=== PATIENT | female | born 1980 | race African-American/Black ===

== ENCOUNTER 2018-06-21 07:58 | Emergency (ER) | payer OTHER ==
[2018-06-21] MEDS ORDERED: Sodium Chloride 0.9% 10 ML Syringe FLUSH PRN (08:15)
[2018-06-21] MEDS ORDERED: Sodium Chloride 0.9% 2.5 ML Syringe FLUSH PRN (08:15)
[2018-06-21] MEDS ORDERED: Sodium Chloride 0.9% 1,000 ML IV ONE ×2 (08:16→10:32)
[2018-06-21] MEDS ORDERED: Ondansetron 4 MG/2 ML SDV IVPUSH ONE (08:16)
[2018-06-21] MEDS ORDERED: Pantoprazole 40 MG Vial IVPUSH ONE (08:16)
[2018-06-21] MEDS ORDERED: Morphine 2 MG/ML Syringe IVPUSH ONE ×2 (08:16→10:32)
[2018-06-21] MEDS ORDERED: Sodium Chloride 0.9% 20 ML ONE (08:23)
--- NOTE | 2018-06-21 08:26 | EDM.PDOC ---
ED HPI GENERAL MEDICAL PROBLEM - General Chief Complaint: General Stated Complaint: POST SURG PAIN Time Seen by Provider: 06/21/18 08:15 - History of Present Illness INITIAL COMMENTS - FREE TEXT/NARRATIVE: HISTORY AND PHYSICAL: History of present illness: The patient is a 38-year-old female who had surgery at [facility] last Thursday as the patient has had infertility issues and the tells me that she had a fibroid removed and presents with epigastric pain that started this morning. The patient speaks [place] and the would like to translate for her and he tells me she has had some lower abdominal pain since the surgery which she has been using the Percocet 5/325 that she was given for pain and that has been controlling it. He says that she woke up this morning and was having a normal morning when she started having sudden epigastric discomfort and nausea and vomiting as well as 2 episodes of stools. The stools in the vomit were not black or bloody and she persistently complains of this upper abdominal pain that does not localize right or left. She has not had any recent fevers chills chest pain or shortness of breath. He denies as she just had surgery last week and he is not completely clear as to the surgery and the procedure itself but says it was a fibroid. We are currently awaiting getting medical records from that procedure. The patient says she has been passing her urine and prior to these events has been eating and drinking normally. She did not take any pain pills today for this discomfort. She did not take anything [id number] for this pain. He says that the patient has been previously using the pain medication with relief and has not had this epigastric discomfort in the past. He says it came on suddenly this morning and she describes it as a burning-like sensation. The patient denies vaginal bleeding Review of systems: As per history of present illness and below otherwise all systems reviewed and negative. Past medical history: As per history of present illness and as reviewed below otherwise noncontributory. Surgical history: As per history of present illness and as reviewed below otherwise noncontributory. Social history: No reported history of drug or alcohol abuse. Family history: As per history of present illness and as reviewed below otherwise noncontributory. Physical exam: General: Well-developed well-nourished female who is nontoxic but looks very comfortable in the room and is moaning and moving [id number] and has had some dry heaves with some spit on my evaluation. Vital signs are noted by me. HEENT: Atraumatic, normocephalic, pupils reactive, negative for conjunctival pallor or scleral icterus, mucous membranes tacky, throat clear, neck supple, nontender, trachea midline. Lungs: Clear to auscultation, breath sounds equal bilaterally, chest nontender. No work of breathing or wheezing or stridor Heart: S1S2, regular, negative for clicks, rubs, or JVD. Abdomen: Soft, hypoactive bowel sounds but no tympany on percussion. The patient has epigastric tenderness on palpation but also has lower abdominal tenderness diffusely in the incision has a dressing in place. According to the they're not supposed to remove the dressing until Thursday but I did peel up the side of the dressing and the incision looks clean and dry without any erythema. The patient looks like she has an enlarged uterus and almost looks like she is 15-16 weeks and the uterus is palpable and there is exquisite tenderness with this exam. She pushes me away when I palpate the area touch of her lower abdomen and she has mild tenderness when I touch any other place at all but mostly in his lower region as well as in the epigastric area. When asked the if this abdominal visual exam is her baseline he says yes. Negative for masses or hepatosplenomegaly. Pelvis: Stable nontender. Genitourinary: Deferred. Rectal: Deferred. Extremities: Atraumatic, negative for cords or calf pain. Neurovascular unremarkable. Full range of motion without defects or deficits Neuro: Awake, alert, oriented. Cranial nerves II through XII unremarkable. Cerebellum unremarkable. Motor and sensory unremarkable throughout. Exam nonfocal. Diagnostics: CBC CMP lipase H. pylori UA serum hCG CT scan of the abdomen and pelvis Therapeutics: IV fluids Zofran and morphine Protonix Zosyn Medical records were obtained from [place] and the patient's surgeon was Dr Jacqueline Moeller and she went an open procedure for removal of a single uterine fibroid which was on the fundus of the uterus. In the notes that were obtained her preop examination indicated that the fibroid extended 4 cm above the umbilicus and on ultrasound the fibroid measured approximately 16 cm. According to the notes there were no complications and the patient was discharged on postop day 1. This corroborates the story of the telling me that her abdomen was much bigger before the surgery and although it still looks larger than normal it is much improved. 0905: She is feeling much improved and is in fact laying in the bed sleeping. T scan is coming to get the patient. I've already reviewed her labs and they're significant for a hemoglobin of 9.9 WBC count of 20.48 bilirubin of 2.0 with otherwise normal liver enzymes and a positive H. pylori The tele-radiologist contacted me with concerning findings for uterine dehiscence and/or surrounding infection from this patient's surgery. I have reviewed the formal report and have contacted the on-call doctor for Dr. Moeller, Dr. Caraballo at 10:33 AM. She is aware of all lab tests as well as the CAT scan findings and accepts the patient for transfer. She is aware that I gave a dose of Zosyn as well as IV fluids and she is stable currently although slightly tachycardic and complaining of pain again. The patient has not had any vaginal bleeding while here in the emergency department. We will transfer this patient by ambulance. On my reevaluation of her abdominal exam she is not having any more abdominal distention and her abdomen is soft and in fact she has less tenderness with palpation of the lower abdominal areas. The and patient are also aware of the H. pylori test which is likely an incidental finding. We will send all images to the receiving hospital and I will give a second liter of IV fluids more pain medication and the Zosyn for transfer. She understands as does the the need for transfer and they are agreeable Impression: Lower abdominal pain with recent myomectomy, postoperative infection, rule out endometritis rule out uterine dehiscence Epigastric abdominal pain with H. pylori positive, likely an incidental finding Definitive disposition and diagnosis as appropriate pending reevaluation and review of above. 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: 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 Musculoskeletal History: Reports: None Neurological History: Reports: None Psychiatric History: Reports: None Endocrine/Metabolic History: Reports: None Hematologic History: Reports: None Immunologic History: Reports: None Oncologic (Cancer) History: Reports: None Dermatologic History: Reports: None - Past Surgical History Head Surgeries/Procedures: Reports: None HEENT Surgical History: Reports: None Cardiovascular Surgical History: Reports: None Respiratory Surgical History: Reports: None GI Surgical History: Reports: None Female Surgical History: Reports: Endometrial Ablation Endocrine Surgical History: Reports: None Neurological Surgical History: Reports: None Musculoskeletal Surgical History: Reports: None Oncologic Surgical History: Reports: None Dermatological Surgical History: Reports: None Social & Family History - Family History Family Medical History: Noncontributory - Tobacco Use Smoking Status *Q: Never Smoker Second Hand Smoke Exposure: No - Caffeine Use Caffeine Use: Reports: Tea - Recreational Drug Use Recreational Drug Use: No ED ROS GENERAL - Review of Systems Review Of Systems: ROS reveals no pertinent complaints other than HPI. ED EXAM, GENERAL - Physical Exam Exam: See Below (See dictation) Course - Vital Signs Last Recorded V/S: Last Vital Signs Temp 35.9 C 06/21/18 09:54 Pulse 106 H 06/21/18 10:32 Resp 16 06/21/18 10:32 BP 109/74 06/21/18 10:32 Pulse Ox 100 06/21/18 10:32 - Orders/Labs/Meds Orders: Active Orders 24 hr Category Date Time Status UA RFX SCARLETT AND CULT IF INDIC [URIN] Stat Lab 06/21/18 08:15 Ordered Sodium Chloride 0.9% [Normal Saline] 1,000 ml Med 06/21/18 10:32 Active IV STAT Sodium Chloride 0.9% [Saline Flush] Med 06/21/18 08:15 Active 10 ml FLUSH ASDIRECTED PRN Sodium Chloride 0.9% [Saline Flush] Med 06/21/18 08:15 Active 2.5 ml FLUSH ASDIRECTED PRN Saline Lock Insert [OM.PC] Stat Oth 06/21/18 08:15 Ordered Medication Orders Sodium Chloride (Normal Saline) 1,000 mls @ 999 mls/hr IV STAT ONE Stop: 06/21/18 11:32 Sodium Chloride (Saline Flush) 10 ml FLUSH ASDIRECTED PRN PRN Reason: Keep Vein Open Last Admin: 06/21/18 08:39 Dose: 10 ml Sodium Chloride (Saline Flush) 2.5 ml FLUSH ASDIRECTED PRN PRN Reason: Keep Vein Open Last Admin: 06/21/18 08:39 Dose: 2.5 ml Labs: Laboratory Tests 06/21/18 06/21/18 06/21/18 Range/Units 08:25 08:25 08:25 WBC 20.48 H (4.0-11.0) K/uL RBC 3.66 L (4.30-5.90) M/uL Hgb 9.9 L (12.0-16.0) g/dL Hct 29.7 L (36.0-46.0) % MCV 81.1 (80.0-98.0) fL MCH 27.0 (27.0-32.0) pg MCHC 33.3 (31.0-37.0) g/dL RDW Std Deviation 40.3 (28.0-62.0) fl RDW Coeff of Ben 14 (11.0-15.0) % Plt Count 515 H (150-400) K/uL MPV 9.50 (7.40-12.00) fL Neut % (Auto) 86.9 H (48.0-80.0) % Lymph % (Auto) 5.0 L (16.0-40.0) % [place] % (Auto) 8.0 (0.0-15.0) % Eos % (Auto) 0.0 (0.0-7.0) % Baso % (Auto) 0.1 (0.0-1.5) % Neut # (Auto) 17.8 H (1.4-5.7) K/uL Lymph # (Auto) 1.0 (0.6-2.4) K/uL [place] # (Auto) 1.6 H (0.0-0.8) K/uL Eos # (Auto) 0.0 (0.0-0.7) K/uL Baso # (Auto) 0.0 (0.0-0.1) K/uL Nucleated RBC % 0.2 /100WBC Nucleated RBCs # 0 K/uL Sodium 135 L (136-145) mmol/L Potassium 4.0 (3.5-5.1) mmol/L Chloride 97 L (98-107) mmol/L Carbon Dioxide 24.9 (21.0-32.0) mmol/L BUN 11 (7.0-18.0) mg/dL Creatinine 1.0 (0.6-1.0) mg/dL Est Cr Clr Drug Dosing 67.16 mL/min Estimated GFR (MDRD) > 60.0 ml/min Glucose 136 H (74-106) mg/dL Calcium 9.6 (8.5-10.1) mg/dL Total Bilirubin 2.0 H (0.2-1.0) mg/dL AST 27 (15-37) IU/L ALT 27 (14-63) IU/L Alkaline Phosphatase 103 (46-116) U/L Total Protein 8.6 H (6.4-8.2) g/dL Albumin 3.0 L (3.4-5.0) g/dL Globulin 5.6 H (2.6-4.0) g/dL Albumin/Globulin Ratio 0.5 L (0.9-1.6) Lipase 77 (73-393) U/L HCG, Qual NEGATIVE (NEG) H. pylori IgG Antibody POSITIVE H (NEG) Meds: Medications Generic Name Dose Route Start Last Admin Trade Name Freq PRN Reason Stop Dose Admin Sodium Chloride 1,000 mls @ 999 mls/hr 06/21/18 10:32 Normal Saline IV 06/21/18 11:32 STAT ONE Sodium Chloride 10 ml 06/21/18 08:15 06/21/18 08:39 Saline Flush FLUSH 10 ml ASDIRECTED PRN Administration Keep Vein Open Sodium Chloride 2.5 ml 06/21/18 08:15 06/21/18 08:39 Saline Flush FLUSH 2.5 ml ASDIRECTED PRN Administration Keep Vein Open Discontinued Medications Generic Name Dose Route Start Last Admin Trade Name Freq PRN Reason Stop Dose Admin Sodium Chloride 1,000 mls @ 999 mls/hr 06/21/18 08:16 06/21/18 08:33 Normal Saline IV 06/21/18 09:16 999 mls/hr STAT ONE Administration Sodium Chloride Confirm 06/21/18 08:23 06/21/18 08:39 Normal Saline Administered 06/21/18 08:24 20 mls/hr Dose Administration 20 mls @ as directed .ROUTE .STK-MED ONE Piperacillin Sod/Tazobactam 50 mls @ 100 mls/hr 06/21/18 10:10 Sod 3.375 gm/ Sodium Chloride IV 06/21/18 10:39 ONETIME ONE Iopamidol 100 ml 06/21/18 09:46 06/21/18 09:46 Isovue Multipack-370 (76%) IVPUSH 06/21/18 09:47 100 ml ONETIME ONE Administration Morphine Sulfate 4 mg 06/21/18 08:16 06/21/18 08:35 Morphine IVPUSH 06/21/18 08:17 4 mg ONETIME ONE Administration Morphine Sulfate 4 mg 06/21/18 10:32 Morphine IVPUSH 06/21/18 10:33 ONETIME ONE Ondansetron HCl 4 mg 06/21/18 08:16 06/21/18 08:33 Zofran IVPUSH 06/21/18 08:17 4 mg ONETIME ONE Administration Pantoprazole Sodium 80 mg 06/21/18 08:16 06/21/18 08:34 Protonix Iv IVPUSH 06/21/18 08:17 80 mg .BOLUS ONE Administration Departure - Departure Time of Disposition: 10:45 Disposition: DC/Tfer to Acute Hospital 02 Condition: Good Clinical Impression: Positive Helicobacter pylori test Postoperative infection Qualifiers: Encounter type: initial encounter Postoperative infection type: organ or organ space surgical site Qualified Code(s): T81.43XA - Infection following a procedure, organ and space surgical site, initial encounter - Discharge Information Referrals: PCP,Unknown [Primary Care Provider] - Forms: ED Department Discharge - My Orders Last 24 Hours: My Active Orders 06/21/18 08:15 UA RFX SCARLETT AND CULT IF INDIC [URIN] Stat Sodium Chloride 0.9% [Saline Flush] 10 ml FLUSH ASDIRECTED PRN Sodium Chloride 0.9% [Saline Flush] 2.5 ml FLUSH ASDIRECTED PRN Saline Lock Insert [OM.PC] Stat 06/21/18 10:32 Sodium Chloride 0.9% [Normal Saline] 1,000 ml IV STAT - Assessment/Plan Last 24 Hours: My Active Orders 06/21/18 08:15 UA RFX SCARLETT AND CULT IF INDIC [URIN] Stat Sodium Chloride 0.9% [Saline Flush] 10 ml FLUSH ASDIRECTED PRN Sodium Chloride 0.9% [Saline Flush] 2.5 ml FLUSH ASDIRECTED PRN Saline Lock Insert [OM.PC] Stat 06/21/18 10:32 Sodium Chloride 0.9% [Normal Saline] 1,000 ml IV STAT
[2018-06-21 08:58] LABS: CHLORIDE,CL 97 mmol/L (98-107); SODIUM,NA 135 mmol/L (136-145)
[2018-06-21] MEDS ORDERED: Iopamidol 755 MG/ML 500 ML Multipack Bottle IVPUSH ONE (09:46)
[2018-06-21] MEDS ORDERED: Piperacillin/Tazobactam 3.375 GM in Sodium Chloride 0.9% 50 ML IV ONE (10:10)
--- NOTE | 2018-06-21 10:24 | CT ---
Indication: Pain in lower abdomen Technique: Contrast-enhanced CT abdomen and pelvis. 100 mL Isovue 370. Coronal and sagittal reformatted images obtained. Comparison: No comparison studies are available. Findings: Heart size is normal. There is no pericardial effusion or pleural effusion. Liver spleen pancreas gallbladder and adrenal glands are unremarkable. Symmetric enhancement of both kidneys. There is no hydronephrosis. The uterus is enlarged and heterogeneous in appearance. Complex low-attenuation collections within the uterus measuring up to 10.4 by 6.3 x 6 cm There are there are 2 linear low-attenuation incision/uterine discontinuity along the anterior superior and mid uterus extending anteriorly with adjacent anterior ill-defined mixed attenuation collections along the anterior pelvis. This is seen on sagittal series 204, image 70 and also image 78. There is significant heterogeneous slightly dense inflammatory change and fluid extending along the anterior pelvis and also along the lateral pelvic gutters. The urinary bladder appears grossly intact. There is a minimal stranding in the prevesical space. The majority is anterior to the uterus. The bowel appears unremarkable. No obstruction. No suspicious bony lesions. Impression: 1. Heterogeneous enlarged uterus. Complex low-attenuation collections in the uterus measuring up to 10.4 x 6.3 x 6 cm. There are 2 linear areas of uterine discontinuity/incisions seen along the mid and lower anterior uterus which is contiguous with significant heterogeneous slightly dense inflammatory change and fluid along the anterior pelvis. Findings are worrisome for uterine dehiscence with hemorrhage and infection. Results called to Dr. Huang on 06/21/2018 at 10:20am. Please note that all CT scans at this facility use dose modulation, iterative reconstruction, and/or weight-based dosing when appropriate to reduce radiation dose to as low as reasonably achievable. Dictated by Toshia Andrea MD @ Jun 21 2018 9:57AM Signed by Dr. Toshia Andrea @ Jun 21 2018 10:22AM
[2018-06-21] MEDS ORDERED: Sodium Chloride 0.9% 1,000 ML IV SCH (11:00)
== END 2018-06-21 12:08 ==
LOC: MW.ED 07:58
DX: T81.43XA Infection following a procedure, organ and space surgical site, initial encounter (principal); B96.81 Helicobacter pylori [H. pylori] as the cause of diseases classified elsewhere
CPT/HCPCS: 36415; 74177; 80053; 81001; 83690; 84703; 85025; 86677; 96361; 96365; 96375; 96376; 99285; C9113; J2270; J2405; J2543; J7040; J7050; Q9967

== ENCOUNTER 2019-11-07 05:21 | Inpatient (IN) | payer BC ==
[2019-11-07] MEDS ORDERED: ceFAZolin 1 GM in Premix Bag 1 BAG IV ONE (05:29)
[2019-11-07] MEDS ORDERED: Citric Acid/Sodium Citrate Solution 30 ML Cup PO ONE (05:29)
[2019-11-07] MEDS ORDERED: Sodium Chloride 0.9% 10 ML Syringe FLUSH PRN (05:29)
[2019-11-07] MEDS ORDERED: Sodium Chloride 0.9% 10 ML SDV IV PRN (05:29)
[2019-11-07] MEDS ORDERED: Sodium Chloride 0.9% 2.5 ML Syringe FLUSH PRN (05:29)
[2019-11-07] MEDS ORDERED: Oxytocin/0.9 % Sodium Chloride 30 UNIT/500 ML BAG IV SCH (05:30)
[2019-11-07] MEDS: Lactated Ringers 1,000 ML IV SCH ×4 (06:06→17:14)
--- NOTE | 2019-11-07 07:04 | PCM.PREANE ---
Preanesthetic Assessment - Anesthesia/Transfusion/Family Hx Anesthesia History: Prior Anesthesia Without Reaction Family History of Anesthesia Reaction: No Transfusion History: Prior Transfusion Without Reaction Intubation History: Unknown - Review of Systems General: No Symptoms Pulmonary: No Symptoms Cardiovascular: No Symptoms Gastrointestinal: No Symptoms Neurological: No Symptoms Other: Reports: None - Physical Assessment Height: 5 ft 4 in Weight: 72.575 kg ASA Class: 2 Mental Status: Alert & Oriented x3 Airway Class: Mallampati = 2 Dentition: Reports: Normal Dentition Thyro-Mental Finger Breadths: 3 Mouth Opening Finger Breadths: 2 (small mouth) ROM/Head Extension: Full Lungs: Clear to Auscultation, Normal Respiratory Effort Cardiovascular: Regular Rate, Regular Rhythm - Lab Values: Laboratory Last Values WBC 7.99 K/uL (4.0-11.0) 11/04/19 08:33 RBC 4.25 M/uL (4.30-5.90) L 11/04/19 08:33 Hgb 10.7 g/dL (12.0-16.0) L 11/04/19 08:33 Hct 34.6 % (36.0-46.0) L 11/04/19 08:33 MCV 81.4 fL (80.0-98.0) 11/04/19 08:33 MCH 25.2 pg (27.0-32.0) L 11/04/19 08:33 MCHC 30.9 g/dL (31.0-37.0) L 11/04/19 08:33 RDW Std Deviation 61.8 fl (28.0-62.0) 11/04/19 08:33 RDW Coeff of Ben 22 % (11.0-15.0) H 11/04/19 08:33 Plt Count 222 K/uL (150-400) 11/04/19 08:33 MPV 10.60 fL (7.40-12.00) 11/04/19 08:33 Nucleated RBC % 0.0 /100WBC 11/04/19 08:33 Nucleated RBCs # 0 K/uL 11/04/19 08:33 Blood Type O POSITIVE 11/04/19 08:33 Antibody Screen NEGATIVE 11/04/19 08:33 - Allergies Allergies/Adverse Reactions: Allergies Allergy/AdvReac Type Severity Reaction Status Date / Time No Known Allergies Allergy Verified 11/03/19 10:15 - Blood Blood Available: No - Anesthesia Plan Pre-Op Medication Ordered: None - Acknowledgements Anesthesia Type Planned: Spinal (GETA back-up plan) Pt an Appropriate Candidate for the Planned Anesthesia: Yes Alternatives and Risks of Anesthesia Discussed w Pt/Guardian: Yes Pt/Guardian Understands and Agrees with Anesthesia Plan: Yes PreAnesthesia Questionnaire HEENT History: Reports: Other (See Below) Other HEENT History: wears glasses Cardiovascular History: Reports: None Respiratory History: Reports: None Gastrointestinal History: Reports: Helicobacter Pylori Genitourinary History: Reports: None FIELD TECH History: Reports: Fibroids, Other OB/BYN History: possible missed AB Musculoskeletal History: Reports: None Neurological History: Reports: None Psychiatric History: Reports: None Endocrine/Metabolic History: Reports: None Hematologic History: Reports: Blood Transfusion(s) Other Hematologic History: transfused after missed AB ? Immunologic History: Reports: None Oncologic (Cancer) History: Reports: None Dermatologic History: Reports: None - Past Surgical History Head Surgeries/Procedures: Reports: None Female Surgical History: Reports: Other (See Below) Other Female Surgeries/Procedures: removal of uterine fibroid - SUBSTANCE USE Smoking Status *Q: Never Smoker Second Hand Smoke Exposure: No Recreational Drug Use History: No - HOME MEDS Home Medications: Home Meds Pnv No.95/Ferrous Fum/Folic AC [ Vitamin Tablet] 1 tab PO DAILY 11/03/19 [History] - CURRENT (IN HOUSE) MEDS Current Meds: Current Medications Oxytocin/Sodium Chloride (Oxytocin 30 Unit/500 Ml-Ns) 30 unit in 500 mls @ 250 mls/hr IV TITRATE SHAJI Lactated Ringer's (Ringers, Lactated) 1,000 mls @ 500 mls/hr IV BOLUS SHAJI Last Admin: 11/07/19 06:06 Dose: 500 mls/hr Documented by: Sodium Chloride (Saline Flush) 10 ml FLUSH ASDIRECTED PRN PRN Reason: Keep Vein Open Sodium Chloride (Saline Flush) 2.5 ml FLUSH ASDIRECTED PRN PRN Reason: Keep Vein Open Sodium Chloride (Normal Saline) 10 ml IV ASDIRECTED PRN PRN Reason: IV Use Discontinued Medications Citric Acid/Sodium Citrate (Bicitra Solution) 30 ml PO ONETIME ONE Stop: 07/20/20 05:30 Cefazolin Sodium/Dextrose 1 gm (/ Premix) 50 mls @ 100 mls/hr IV ONETIME ONE Stop: 11/07/19 05:58
[2019-11-07] MEDS ORDERED: Oxytocin 10 Units/1 ML SDV ONE (07:32)
[2019-11-07] MEDS ORDERED: Morphine PF 10 MG/10 ML SDV ONE (07:33)
[2019-11-07] MEDS ORDERED: ceFAZolin 1 GM Vial ONE (07:40)
[2019-11-07] MEDS ORDERED: fentaNYL 100 MCG/2 ML SDV ONE (09:21)
[2019-11-07] MEDS ORDERED: Ondansetron 4 MG/2 ML SDV IVPUSH PRN ×2 (09:28→09:39)
[2019-11-07] MEDS ORDERED: diphenhydrAMINE 50 MG/ML SDV IVPUSH PRN ×2 (09:28→09:39)
[2019-11-07] MEDS ORDERED: Misoprostol 200 MCG Tab RECTAL PRN (09:28)
[2019-11-07] MEDS ORDERED: Methylergonovine 0.2 MG/1 ML Amp IM PRN (09:28)
[2019-11-07] MEDS ORDERED: Oxytocin 10 Units/1 ML SDV IM PRN (09:28)
[2019-11-07] MEDS ORDERED: Tranexamic Acid 1,000 MG in Sodium Chloride 0.9% 100 ML IV PRN (09:28)
[2019-11-07] MEDS ORDERED: Bisacodyl 10 MG Supp RECTAL PRN (09:28)
[2019-11-07] MEDS ORDERED: Lanolin 100% Cream 7 GM Tube TOP PRN (09:28)
[2019-11-07] MEDS ORDERED: Acetaminophen/oxyCODONE 325-5 MG Tab PO PRN ×2 (09:28→09:39)
[2019-11-07] MEDS ORDERED: Naloxone 0.4 MG/ML Syringe IVPUSH PRN (09:39)
[2019-11-07] MEDS ORDERED: fentaNYL 100 MCG/2 ML SDV IVPUSH PRN (09:39)
[2019-11-07] MEDS ORDERED: Nalbuphine 10 MG/1 ML Vial IVPUSH PRN (09:39)
--- NOTE | 2019-11-07 10:03 | PCM.OPNOTE ---
- General Post-Op/Procedure Note Date of Surgery/Procedure: 11/07/19 Operative Procedure(s): Primary LTCS Findings: Viable male 8, 9 weight 7 lb 2 oz. Delivery intact placenta with 3V cord. Significant lower uterine segment adhesions to anterior abdominal wall given previous laparotomy Pre Op Diagnosis: 37 week IUP. Previous laparotomy with myomectomy Post-Op Diagnosis: Same Anesthesia Technique: Spinal Primary Surgeon: Eileen Hamilton [facility] Laboratory Technician: Agustina Proctor Pathology: placenta Fluid Replacement, Intraop: 2,100 EBL in mLs: 800 Complications: none known Condition: Stable Free Text/Narrative:: Dictation [id number]
[2019-11-07] MEDS: Ketorolac 30 MG/ML SDV IVPUSH SCH ×3 (10:07→21:11)
--- NOTE | 2019-11-07 14:49 | OR ---
SURGEON: Eileen Hamilton M.D. DATE OF PROCEDURE: 11/07/2019 PREOPERATIVE DIAGNOSES: 1. A 37-week intrauterine . 2. Previous laparotomy with myomectomy. POSTOPERATIVE DIAGNOSES: 1. A 37-week intrauterine . 2. Previous laparotomy with myomectomy. PROCEDURE: Primary low transverse section. PRIMARY SURGEON: Eileen Hamilton MD ANESTHESIA: Spinal. ESTIMATED BLOOD LOSS: 800 mL. FLUIDS: 2100 mL of crystalloid. FINDINGS: Viable male. score of 8 at one minute and 9 at five minutes. Weight of 7 pounds 2 ounces. Delivery; intact placenta, 3-vessel cord. Significant anterior abdominal wall lower uterine segment adhesions. The lower uterine segment is not developed at all given previous myomectomy with significant scarring along this region of the uterus. DISPOSITION: The patient to PACU, to nursery in stable condition. PROCEDURE DETAILS: Clarice is a 39-year-old, G1, P0, at 37 weeks' gestational age who presents this morning for scheduled primary delivery given history of laparotomy with myomectomy. Risks of procedure were discussed. Proper consent obtained. Given the depth and the location of the myomectomy, I felt it was best to proceed with delivery, not allow her to labor. The patient was taken to the operating room where she underwent spinal anesthetic, was placed in dorsal supine position with leftward tilt. SCDs to lower extremity. Yeung to gravity. Was prepped and draped in usual sterile fashion. Received Ancef prophylactically. Time-out was performed. Anesthesia was tested, found to be adequate. Previous Pfannenstiel scar was now excised. Subcutaneous tissue was incised, carried down to level of the rectus fascia, was incised in the midline, lateralized on either side sharply and bluntly. There was significant amount of scar tissue already noted. Anterior upper fascia was grasped with Sheila clamps, dissected away from underlying muscles. In a similar aspect, this was performed with the inferior aspect of fascia. Rectus muscle was now in the midline. The peritoneum was not entered easily. It was fairly scarred. Was able to enter along the mid uterine region. Careful dissection and adhesiolysis allowed further entry into the abdominal cavity. The fundal portion of the uterus was smooth. There was, however, beginning in the mid uterus down to the lower uterine segment significant scarring and adhesions present. Careful adhesiolysis was performed. At this juncture, the uterus was quite boggy. The planes were not well developed. The bladder was able to be gently mobilized away from the region of the lower uterine segment. The lower uterine segment was boggy, not well defined. Therefore, I called my partner, Dr. Proctor, in to assist with the procedure and notified Anesthesia who prepared for potential for hemorrhage At this juncture, a transverse hysterotomy was created.The tissue was quite dense in this region and it felt to be more of a mid uterine entry. The lower uterine segment was not well developed. Amniotomy was performed, clear fluid was returned. The hysterotomy was now lateralized bluntly. Infant's head was flexed and delivered to the midline. Fundal pressure was applied. The head was delivered followed by anterior shoulder, posterior shoulder, and the remainder of the body without difficulty. There was nuchal cord x1, reduced manually. 's oropharynx and nares were bulb suctioned. The cord was clamped x2 and cut. Infant was handed off to attending nursery staff. Cord arterial, cord venous, cord blood sampling obtained. The placenta was now delivered. Hysterotomy was repaired using 0 Vicryl. The deeper layers of this fairly thick hysterotomy were replicated with 0 Vicryl sutures followed by a secondary re-imbricating layer. Any areas along the serosa, oozing were now cauterized. There was some bleeding along the right lateral aspect of the hysterotomy, was repaired with two [id number] sutures. Hemostasis thereafter evident. Pelvis was now copiously irrigated, suction dried. Was able to visualize ovaries, appeared normal. The bladder integrity was now checked given the obscurity of the planes. The bladder was backfilled with 120 mL of sterile formula and found to be intact. No region of perforation was noted. The bladder was once again drained. Pelvis once again copiously irrigated. Any areas of oozing were further cauterized and then Gregory was placed along the hysterotomy and along the raw anterior uterine mid to low uterine segment followed by placement of Interceed to help hopefully prevent further adhesion formation. The rectus muscles and what could be palpated for peritoneum were now reapproximated in an inverted mattress suture technique. Anterior aspect of the muscle closely inspected, any areas of oozing were cauterized. Posterior aspect of the fascia was inspected, any areas of oozing were cauterized. Fascial edges were reapproximated using 0 Vicryl in continuous running fashion, beginning laterally on either side and meeting in the midline. Subcutaneous tissue was well irrigated, suction dried. Any areas of oozing were cauterized. Skin edges were reapproximated using 3-0 Vicryl on a Shivam needle in subcuticular fashion followed by half-inch Steri-Strips and Mastisol. The uterus was firm. Hemostasis appeared evident. Overall, the patient tolerated the procedure well. She will go to PACU in stable condition, infant to nursery. Sponge, instrument, and needle counts correct x2. MELANIE / TOSHIA /[id number]
[2019-11-07] MEDS: Docusate Sodium 100 MG Cap PO SCH (21:11)
[2019-11-08] MEDS: Ketorolac 30 MG/ML SDV IVPUSH SCH ×2 (03:06→10:15)
--- NOTE | 2019-11-08 07:35 | PCM.PNPP ---
<Florentino Kaminski - Last Filed: 11/08/19 07:35> - General Info Date of Service: 11/08/19 Subjective Update: Pt doing well today. Has mild pain, worse when she moves. She has been ambulating back and forth to the restroom, feeling so dizziness with standing. She has voided urine. has been difficult thus far. Bleeding is minimal. Functional Status: Reports: Pain Controlled - Review of Systems General: Reports: No Symptoms HEENT: Reports: No Symptoms Pulmonary: Reports: No Symptoms Cardiovascular: Reports: No Symptoms Gastrointestinal: Reports: Abdominal Pain Genitourinary: Reports: No Symptoms Musculoskeletal: Reports: No Symptoms Skin: Reports: No Symptoms Neurological: Reports: Dizziness Psychiatric: Reports: No Symptoms - General Info Date of Service: 11/08/19 - Patient Data Vital Signs - Most Recent: Last Vital Signs Temp 97.2 F 11/08/19 04:00 Pulse 102 H 11/08/19 06:00 Resp 17 11/08/19 06:00 BP 99/58 L 11/08/19 04:00 Pulse Ox 92 L 11/08/19 06:00 Weight - Most Recent: 72.575 kg I&O - Last 24 Hours: Intake & Output 11/07/19 11/08/19 11/08/19 22:59 06:59 14:59 Intake Total 1098 Output Total 250 1125 Balance -250 -27 Lab Results - Last 24 Hours: Laboratory Results - last 24 hr 11/04/19 11/07/19 11/08/19 Range/Units 08:33 08:49 05:55 Hgb 8.3 L (12.0-16.0) g/dL Hct 26.3 L (36.0-46.0) % Cord ABG pH 7.264 (7.18-7.38) Cord ABG Base Excess -4 (-10--2) Cord VBG pH 7.268 (7.25-7.45) Cord VBG Base Excess -5 (-10--2) Blood Type O POSITIVE Antibody Screen NEGATIVE Crossmatch See Detail Med Orders - Current: Current Medications Bisacodyl (Dulcolax) 10 mg RECTAL ONETIME PRN PRN Reason: Constipation Diphenhydramine HCl (Benadryl) 25 mg IVPUSH Q6H PRN PRN Reason: Itching or Nausea Diphenhydramine HCl (Benadryl) 25 mg IVPUSH Q4H PRN PRN Reason: Itching Stop: 11/08/19 09:39 Docusate Sodium (Colace) 100 mg PO BID [facility] Last Admin: 11/07/19 21:11 Dose: 100 mg Documented by: Emollient Ointment (Lansinoh Hpa) 0 gm TOP ASDIRECTED PRN PRN Reason: Sore Nipples Fentanyl (Sublimaze) 50 mcg IVPUSH Q1H PRN PRN Reason: Pain (severe 7-10) Oxytocin/Sodium Chloride (Oxytocin 30 Unit/500 Ml-Ns) 30 unit in 500 mls @ 250 mls/hr IV TITRATE [facility] Lactated Ringer's (Ringers, Lactated) 1,000 mls @ 500 mls/hr IV BOLUS [facility] Last Admin: 11/07/19 07:04 Dose: 500 mls/hr Documented by: Lactated Ringer's (Ringers, Lactated) 1,000 mls @ 125 mls/hr IV ASDIRECTED [facility] Last Admin: 11/07/19 17:14 Dose: 125 mls/hr Documented by: Tranexamic Acid 1,000 mg/ (Sodium Chloride) 110 mls @ 660 mls/hr IV ONETIME PRN PRN Reason: Bleeding Ibuprofen (Motrin) 800 mg PO Q8H PRN PRN Reason: mild pain or fever Ketorolac Tromethamine (Toradol) 30 mg IVPUSH Q6H [facility] Stop: 11/08/19 09:31 Last Admin: 11/08/19 03:06 Dose: 30 mg Documented by: Methylergonovine Maleate (Methergine) 0.2 mg IM ONETIME PRN PRN Reason: Excessive Vaginal Bleeding Misoprostol (Cytotec) 1,000 mcg RECTAL ONETIME PRN PRN Reason: excessive bleeding Nalbuphine HCl (Nubain) 5 mg IVPUSH ASDIRECTED PRN PRN Reason: Itching Naloxone HCl (Narcan) 0.1 mg IVPUSH ONETIME PRN PRN Reason: Respiratory Depression Stop: 11/08/19 09:39 Ondansetron HCl (Zofran) 4 mg IVPUSH Q4H PRN PRN Reason: Nausea/Vomiting Ondansetron HCl (Zofran) 4 mg IVPUSH Q6H PRN PRN Reason: Nausea Oxycodone/Acetaminophen (Percocet 325-5 Mg) 1 tab PO Q4H PRN PRN Reason: Pain (moderate 4-6) Oxycodone/Acetaminophen (Percocet 325-5 Mg) 2 tab PO Q4H PRN PRN Reason: Pain (moderate 4-6) Oxytocin (Pitocin) 10 unit IM ASDIRECTED PRN PRN Reason: Excessive Vaginal Bleeding Sodium Chloride (Saline Flush) 10 ml FLUSH ASDIRECTED PRN PRN Reason: Keep Vein Open Sodium Chloride (Saline Flush) 2.5 ml FLUSH ASDIRECTED PRN PRN Reason: Keep Vein Open Sodium Chloride (Normal Saline) 10 ml IV ASDIRECTED PRN PRN Reason: IV Use Discontinued Medications Cefazolin Sodium (Ancef) Confirm Administered Dose 1 gm .ROUTE .STK-MED ONE Stop: 11/07/19 07:41 Citric Acid/Sodium Citrate (Bicitra Solution) 30 ml PO ONETIME ONE Stop: 11/07/19 05:30 Last Admin: 11/07/19 10:29 Dose: Not Given Documented by: Fentanyl (Sublimaze) Confirm Administered Dose 100 mcg .ROUTE .STK-MED ONE Stop: 11/07/19 09:22 Cefazolin Sodium/Dextrose 1 gm (/ Premix) 50 mls @ 100 mls/hr IV ONETIME ONE Stop: 11/07/19 05:58 Last Admin: 11/07/19 10:29 Dose: Not Given Documented by: Morphine Sulfate (Duramorph Pf) Confirm Administered Dose 10 mg .ROUTE .STK-MED ONE Stop: 11/07/19 07:34 Oxycodone/Acetaminophen (Percocet 325-5 Mg) 2 tab PO Q6H PRN PRN Reason: Pain (moderate 4-6) Oxytocin (Pitocin) Confirm Administered Dose 30 unit .ROUTE .STK-MED ONE Stop: 11/07/19 07:33 Tranexamic Acid (Cyklokapron) Confirm Administered Dose 1,000 mg .ROUTE .STK-MED ONE Stop: 11/07/19 08:34 - Infant Interaction Support Person: - Recovery Exam Fundal Tone: Firm Fundal Level: 2 Fingerbreadths Above Umbilicus Fundal Placement: Midline Lochia Amount: Scant Lochia Color: Rubra/Red Perineum Description: Intact, Minimal Bruising/Swelling Episiotomy/Laceration: None Bladder Status: Indwelling Catheter in Place Urinary Elimination: Indwelling Catheter - Exam General: Alert, Oriented, No Acute Distress HEENT: Pupils Equal, EOMI Neck: Supple, No JVD Lungs: Clear to Auscultation, Normal Respiratory Effort. No: Crackles, Rales, Rhonchi, Wheezing Cardiovascular: Regular Rate, Regular Rhythm, Murmurs (systolic murmur) GI/Abdominal Exam: Normal Bowel Sounds, Soft, Tender. No: Guarding, Rigid Extremities: Normal Inspection, Non-Tender, Pedal Edema Skin: Warm, Dry, Intact Wound/Incisions: Healing Well Neurological: No New Focal Deficit, Normal Speech, Normal Tone Psy/Mental Status: Alert, Normal Affect, Normal Mood - Problem List & Annotations (1) Status post SNOMED Code(s): 934541982, 256486637 Code(s): Z98.891 - HISTORY OF UTERINE SCAR FROM PREVIOUS SURGERY Status: Acute Current Visit: Yes - Problem List Review Problem List Initiated/Reviewed/Updated: Yes - Assessment Assessment:: 39yo s/p LTCD at 37wks for hx of myomectomy. POD#1 - Plan Plan:: Routine care Encourage ambulation Encourage Possible discharge POD#2 <Eileen Hamilton - Last Filed: 11/08/19 10:08> - General Info Subjective Update: Clarify--no dizziness with standing - Patient Data Vital Signs - Most Recent: Last Vital Signs Temp 36.7 C 11/08/19 07:30 Pulse 106 H 11/08/19 07:30 Resp 16 11/08/19 08:20 BP 106/58 L 11/08/19 07:30 Pulse Ox 95 11/08/19 08:20 I&O - Last 24 Hours: Intake & Output 11/07/19 11/08/19 11/08/19 22:59 06:59 14:59 Intake Total 1098 Output Total 250 1125 Balance -250 -27 Lab Results - Last 24 Hours: Laboratory Results - last 24 hr 11/04/19 11/08/19 Range/Units 08:33 05:55 Hgb 8.3 L (12.0-16.0) g/dL Hct 26.3 L (36.0-46.0) % Crossmatch See Detail Med Orders - Current: Current Medications Bisacodyl (Dulcolax) 10 mg RECTAL ONETIME PRN PRN Reason: Constipation Diphenhydramine HCl (Benadryl) 25 mg IVPUSH Q6H PRN PRN Reason: Itching or Nausea Docusate Sodium (Colace) 100 mg PO BID [facility] Last Admin: 11/07/19 21:11 Dose: 100 mg Documented by: Emollient Ointment (Lansinoh Hpa) 0 gm TOP ASDIRECTED PRN PRN Reason: Sore Nipples Fentanyl (Sublimaze) 50 mcg IVPUSH Q1H PRN PRN Reason: Pain (severe 7-10) Oxytocin/Sodium Chloride (Oxytocin 30 Unit/500 Ml-Ns) 30 unit in 500 mls @ 250 mls/hr IV TITRATE [facility] Lactated Ringer's (Ringers, Lactated) 1,000 mls @ 500 mls/hr IV BOLUS [facility] Last Admin: 11/07/19 07:04 Dose: 500 mls/hr Documented by: Lactated Ringer's (Ringers, Lactated) 1,000 mls @ 125 mls/hr IV ASDIRECTED [facility] Last Admin: 11/07/19 17:14 Dose: 125 mls/hr Documented by: Tranexamic Acid 1,000 mg/ (Sodium Chloride) 110 mls @ 660 mls/hr IV ONETIME PRN PRN Reason: Bleeding Ibuprofen (Motrin) 800 mg PO Q8H PRN PRN Reason: mild pain or fever Methylergonovine Maleate (Methergine) 0.2 mg IM ONETIME PRN PRN Reason: Excessive Vaginal Bleeding Misoprostol (Cytotec) 1,000 mcg RECTAL ONETIME PRN PRN Reason: excessive bleeding Nalbuphine HCl (Nubain) 5 mg IVPUSH ASDIRECTED PRN PRN Reason: Itching Ondansetron HCl (Zofran) 4 mg IVPUSH Q4H PRN PRN Reason: Nausea/Vomiting Ondansetron HCl (Zofran) 4 mg IVPUSH Q6H PRN PRN Reason: Nausea Oxycodone/Acetaminophen (Percocet 325-5 Mg) 1 tab PO Q4H PRN PRN Reason: Pain (moderate 4-6) Oxycodone/Acetaminophen (Percocet 325-5 Mg) 2 tab PO Q4H PRN PRN Reason: Pain (moderate 4-6) Oxytocin (Pitocin) 10 unit IM ASDIRECTED PRN PRN Reason: Excessive Vaginal Bleeding Sodium Chloride (Saline Flush) 10 ml FLUSH ASDIRECTED PRN PRN Reason: Keep Vein Open Sodium Chloride (Saline Flush) 2.5 ml FLUSH ASDIRECTED PRN PRN Reason: Keep Vein Open Sodium Chloride (Normal Saline) 10 ml IV ASDIRECTED PRN PRN Reason: IV Use Discontinued Medications Cefazolin Sodium (Ancef) Confirm Administered Dose 1 gm .ROUTE .STK-MED ONE Stop: 11/07/19 07:41 Citric Acid/Sodium Citrate (Bicitra Solution) 30 ml PO ONETIME ONE Stop: 11/07/19 05:30 Last Admin: 11/07/19 10:29 Dose: Not Given Documented by: Diphenhydramine HCl (Benadryl) 25 mg IVPUSH Q4H PRN PRN Reason: Itching Stop: 11/08/19 09:39 Fentanyl (Sublimaze) Confirm Administered Dose 100 mcg .ROUTE .STK-MED ONE Stop: 11/07/19 09:22 Cefazolin Sodium/Dextrose 1 gm (/ Premix) 50 mls @ 100 mls/hr IV ONETIME ONE Stop: 11/07/19 05:58 Last Admin: 11/07/19 10:29 Dose: Not Given Documented by: Ketorolac Tromethamine (Toradol) 30 mg IVPUSH Q6H [facility] Stop: 11/08/19 09:31 Last Admin: 11/08/19 03:06 Dose: 30 mg Documented by: Ketorolac Tromethamine (Toradol) 30 mg IM ONETIME ONE Stop: 11/08/19 09:53 Morphine Sulfate (Duramorph Pf) Confirm Administered Dose 10 mg .ROUTE .STK-MED ONE Stop: 11/07/19 07:34 Naloxone HCl (Narcan) 0.1 mg IVPUSH ONETIME PRN PRN Reason: Respiratory Depression Stop: 11/08/19 09:39 Oxycodone/Acetaminophen (Percocet 325-5 Mg) 2 tab PO Q6H PRN PRN Reason: Pain (moderate 4-6) Oxytocin (Pitocin) Confirm Administered Dose 30 unit .ROUTE .STK-MED ONE Stop: 11/07/19 07:33 Tranexamic Acid (Cyklokapron) Confirm Administered Dose 1,000 mg .ROUTE .STK-MED ONE Stop: 11/07/19 08:34 - Problem List & Annotations (1) Status post SNOMED Code(s): 334032334, 560155169 Code(s): Z98.891 - HISTORY OF UTERINE SCAR FROM PREVIOUS SURGERY Status: Acute Current Visit: Yes - Problem List Review Problem List Initiated/Reviewed/Updated: Yes - My Orders Last 24 Hours: My Active Orders 11/07/19 09:28 Patient Status [ADT] Routine Ambulate [RC] PER UNIT ROUTINE Antiembolic Devices [RC] PER UNIT ROUTINE Communication Order [RC] PER UNIT ROUTINE Communication Order [RC] PER UNIT ROUTINE Communication Order [RC] Per Unit Routine May Shower [RC] ASDIRECTED Notify Provider Intake and Out [RC] ASDIRECTED Notify Provider Vital Signs [RC] ASDIRECTED RT Incentive Spirometry [RC] Q2HWA Acetaminophen/oxyCODONE [Percocet 325-5 MG] 1 tab PO Q4H PRN Acetaminophen/oxyCODONE [Percocet 325-5 MG] 2 tab PO Q4H PRN Ibuprofen [Motrin] 800 mg PO Q8H PRN Lanolin [Lansinoh HPA] See Dose Instructions TOP ASDIRECTED PRN Methylergonovine [Methergine] 0.2 mg IM ONETIME PRN Ondansetron [Zofran] 4 mg IVPUSH Q4H PRN Oxytocin [Pitocin] 10 unit IM ASDIRECTED PRN Tranexamic Acid [Cyklokapron] 1,000 mg Sodium Chloride 0.9% [Normal Saline] 100 ml IV ONETIME bisacodyL [Dulcolax] 10 mg RECTAL ONETIME PRN diphenhydrAMINE [Benadryl] 25 mg IVPUSH Q6H PRN miSOPROStoL [Cytotec] 1,000 mcg RECTAL ONETIME PRN Assess Lochia [WOMSER] Per Unit Routine Assess Uterine Involution [WOMSER] Per Unit Routine Breast Pump [WOMSER] Per Unit Routine Peripheral IV Discontinue [OM.PC] Routine Sequential Compression Device [OM.PC] Per Unit Routine 11/07/19 09:30 Lactated Ringers [Ringers, Lactated] 1,000 ml IV ASDIRECTED 11/07/19 Lunch Regular Diet [DIET] 11/07/19 21:00 Docusate Sodium [Colace] 100 mg PO BID - Plan Plan:: Seen and examined. Patient is anemic as to be expected. She underwent iron transfusions prior to delivery. VS are stable. Will monitor for orthostatic symptoms and plan oral iron therapy. Doing well overall. Continue postoperative cares.
[2019-11-08] MEDS: Docusate Sodium 100 MG Cap PO SCH ×2 (09:15→20:12)
[2019-11-08] MEDS ORDERED: Ketorolac 30 MG/ML SDV IM ONE (09:52)
[2019-11-08] MEDS: Ibuprofen 800 MG Tab PO PRN (20:12)
[2019-11-08] MEDS: Acetaminophen/oxyCODONE 325-5 MG Tab PO PRN ×2 (20:13→23:57)
[2019-11-09] MEDS: Acetaminophen/oxyCODONE 325-5 MG Tab PO PRN (04:00)
--- NOTE | 2019-11-09 07:30 | PCM.PNPP ---
- General Info Date of Service: 11/09/19 Functional Status: Reports: Pain Controlled, Tolerating Diet, Ambulating, Urinating - Review of Systems General: Denies: Fever, Weakness Pulmonary: Denies: Shortness of Breath Cardiovascular: Denies: Chest Pain, Palpitations, Lightheadedness Gastrointestinal: Denies: Abdominal Pain, Nausea, Vomiting Genitourinary: Denies: Flank Pain Musculoskeletal: Reports: No Symptoms Skin: Reports: No Symptoms Neurological: Reports: No Symptoms Psychiatric: Reports: No Symptoms - General Info Date of Service: 11/09/19 - Patient Data Vital Signs - Most Recent: Last Vital Signs Temp 36.6 C 11/09/19 04:00 Pulse 91 11/09/19 04:00 Resp 17 11/09/19 04:00 BP 100/55 L 11/09/19 04:00 Pulse Ox 95 11/09/19 04:00 Weight - Most Recent: 72.575 kg Med Orders - Current: Current Medications Bisacodyl (Dulcolax) 10 mg RECTAL ONETIME PRN PRN Reason: Constipation Diphenhydramine HCl (Benadryl) 25 mg IVPUSH Q6H PRN PRN Reason: Itching or Nausea Docusate Sodium (Colace) 100 mg PO BID [facility] Last Admin: 11/08/19 20:12 Dose: 100 mg Documented by: Emollient Ointment (Lansinoh Hpa) 0 gm TOP ASDIRECTED PRN PRN Reason: Sore Nipples Fentanyl (Sublimaze) 50 mcg IVPUSH Q1H PRN PRN Reason: Pain (severe 7-10) Oxytocin/Sodium Chloride (Oxytocin 30 Unit/500 Ml-Ns) 30 unit in 500 mls @ 250 mls/hr IV TITRATE [facility] Lactated Ringer's (Ringers, Lactated) 1,000 mls @ 500 mls/hr IV BOLUS [facility] Last Admin: 11/07/19 07:04 Dose: 500 mls/hr Documented by: Lactated Ringer's (Ringers, Lactated) 1,000 mls @ 125 mls/hr IV ASDIRECTED [facility] Last Admin: 11/07/19 17:14 Dose: 125 mls/hr Documented by: Tranexamic Acid 1,000 mg/ (Sodium Chloride) 110 mls @ 660 mls/hr IV ONETIME PRN PRN Reason: Bleeding Ibuprofen (Motrin) 800 mg PO Q8H PRN PRN Reason: mild pain or fever Last Admin: 11/08/19 20:12 Dose: 800 mg Documented by: Methylergonovine Maleate (Methergine) 0.2 mg IM ONETIME PRN PRN Reason: Excessive Vaginal Bleeding Misoprostol (Cytotec) 1,000 mcg RECTAL ONETIME PRN PRN Reason: excessive bleeding Nalbuphine HCl (Nubain) 5 mg IVPUSH ASDIRECTED PRN PRN Reason: Itching Ondansetron HCl (Zofran) 4 mg IVPUSH Q4H PRN PRN Reason: Nausea/Vomiting Ondansetron HCl (Zofran) 4 mg IVPUSH Q6H PRN PRN Reason: Nausea Oxycodone/Acetaminophen (Percocet 325-5 Mg) 1 tab PO Q4H PRN PRN Reason: Pain (moderate 4-6) Last Admin: 11/09/19 04:00 Dose: 1 tab Documented by: Oxycodone/Acetaminophen (Percocet 325-5 Mg) 2 tab PO Q4H PRN PRN Reason: Pain (moderate 4-6) Oxytocin (Pitocin) 10 unit IM ASDIRECTED PRN PRN Reason: Excessive Vaginal Bleeding Sodium Chloride (Saline Flush) 10 ml FLUSH ASDIRECTED PRN PRN Reason: Keep Vein Open Sodium Chloride (Saline Flush) 2.5 ml FLUSH ASDIRECTED PRN PRN Reason: Keep Vein Open Sodium Chloride (Normal Saline) 10 ml IV ASDIRECTED PRN PRN Reason: IV Use Discontinued Medications Cefazolin Sodium (Ancef) Confirm Administered Dose 1 gm .ROUTE .STK-MED ONE Stop: 11/07/19 07:41 Citric Acid/Sodium Citrate (Bicitra Solution) 30 ml PO ONETIME ONE Stop: 11/07/19 05:30 Last Admin: 11/07/19 10:29 Dose: Not Given Documented by: Diphenhydramine HCl (Benadryl) 25 mg IVPUSH Q4H PRN PRN Reason: Itching Stop: 11/08/19 09:39 Fentanyl (Sublimaze) Confirm Administered Dose 100 mcg .ROUTE .STK-MED ONE Stop: 11/07/19 09:22 Cefazolin Sodium/Dextrose 1 gm (/ Premix) 50 mls @ 100 mls/hr IV ONETIME ONE Stop: 11/07/19 05:58 Last Admin: 11/07/19 10:29 Dose: Not Given Documented by: Ketorolac Tromethamine (Toradol) 30 mg IVPUSH Q6H [facility] Stop: 11/08/19 09:31 Last Admin: 11/08/19 10:15 Dose: 30 mg Documented by: Ketorolac Tromethamine (Toradol) 30 mg IM ONETIME ONE Stop: 11/08/19 09:53 Last Admin: 11/08/19 10:24 Dose: Not Given Documented by: Morphine Sulfate (Duramorph Pf) Confirm Administered Dose 10 mg .ROUTE .STK-MED ONE Stop: 11/07/19 07:34 Naloxone HCl (Narcan) 0.1 mg IVPUSH ONETIME PRN PRN Reason: Respiratory Depression Stop: 11/08/19 09:39 Oxycodone/Acetaminophen (Percocet 325-5 Mg) 2 tab PO Q6H PRN PRN Reason: Pain (moderate 4-6) Oxytocin (Pitocin) Confirm Administered Dose 30 unit .ROUTE .STK-MED ONE Stop: 11/07/19 07:33 Tranexamic Acid (Cyklokapron) Confirm Administered Dose 1,000 mg .ROUTE .STK-MED ONE Stop: 11/07/19 08:34 - Infant Interaction Support Person: - Recovery Exam Fundal Tone: Firm Fundal Level: 2 Fingerbreadths Above Umbilicus Fundal Placement: Midline Lochia Amount: Scant Lochia Color: Rubra/Red Perineum Description: Intact, Minimal Bruising/Swelling Episiotomy/Laceration: None Bladder Status: Voiding Urinary Elimination: Voided Other Urinary Elimination, : Due to post void after garza removal by 1200 - Exam General: Alert, Oriented Lungs: Normal Respiratory Effort Cardiovascular: Regular Rate, Regular Rhythm GI/Abdominal Exam: Normal Bowel Sounds, Soft Extremities: Pedal Edema (trace). No: Yariel's Sign Skin: Warm, Dry, Intact Wound/Incisions: Healing Well, No Drainage. No: Erythema Neurological: No New Focal Deficit Psy/Mental Status: Alert, Normal Affect, Normal Mood - Problem List & Annotations (1) Status post SNOMED Code(s): 931410027, 251032605 Code(s): Z98.891 - HISTORY OF UTERINE SCAR FROM PREVIOUS SURGERY Status: Acute Current Visit: Yes - Problem List Review Problem List Initiated/Reviewed/Updated: Yes - My Orders Last 24 Hours: My Active Orders 11/09/19 07:26 Ready for Discharge [RC] PER UNIT ROUTINE - Assessment Assessment:: 39yo s/p LTCD at 37wks for hx of myomectomy. POD#2 - Plan Plan:: Patient doing well overall> VS are stable. No orthostatic symptoms. Would like to go home today. Discharge instructions reviewed. To resume oral iron with PNV and will reevaluate CBC at PP visit. Infection and bleeding warnings reviewed. Follow up at [facility] 2 and 6 weeks. Discharge to home today.
[2019-11-09] MEDS: Ibuprofen 800 MG Tab PO PRN (08:05)
[2019-11-09] MEDS: Docusate Sodium 100 MG Cap PO SCH (08:05)
== END 2019-11-09 12:34 | disposition home or self-care (01) | DRG 540 ==
LOC: MW.OB 05:21
PROVIDERS: ADMIT Obstetrics & Gynecology; ATTEND Obstetrics & Gynecology
PROC: 10D00Z1 Extraction of Products of Conception, Low, Open Approach (ICD-10-PCS; principal; 2019-11-07)
DX: O34.211 Maternal care for low transverse scar from previous cesarean delivery (principal); Z3A.37 37 weeks gestation of pregnancy; Z37.0 Single live birth; Z98.890 Other specified postprocedural states
CPT/HCPCS: 36415; 51702; 59025; 82803; 85014; 85018; 85027; 86850; 86900; 86901; 86920; 86921; 86922; 88307; A9270-GY; C1765; J0690; J1885; J2270; J2590; J3010; J7120